=== PATIENT | male | born 1965 | race Caucasian/White ===

== ENCOUNTER 2017-10-18 11:48 | Emergency (ER) | payer SELFPAY, MEDICAID ==
[2017-10-18] MEDS: DIPHTH/TET/ACEL PERTUSS (ADULT) 0.5 ML VIAL IM* (12:31)
[2017-10-18] MEDS: LIDOCAINE 1% (MDV) 10 ML INJ INFIL (12:31)
== END 2017-10-18 13:32 | disposition home or self-care (01) ==
LOC: FTE 11:48
DX: S61.012A Laceration without foreign body of left thumb without damage to nail, initial encounter (principal); F17.210 Nicotine dependence, cigarettes, uncomplicated; W26.0XXA Contact with knife, initial encounter; Y92.9 Unspecified place or not applicable; Z23 Encounter for immunization
CPT/HCPCS: 12001; 90471; 90715; 99283-25

== ENCOUNTER 2019-02-18 01:02 | Emergency (ER) | payer SELFPAY ==
[2019-02-18] MEDS: predniSONE 20 MG TAB PO (01:37)
[2019-02-18] MEDS: DIPHENHYDRAMINE 25 MG CAP PO (01:37)
== END 2019-02-18 01:51 | disposition home or self-care (01) ==
LOC: FTE 01:02
DX: S50.861A Insect bite (nonvenomous) of right forearm, initial encounter (principal); S50.862A Insect bite (nonvenomous) of left forearm, initial encounter; W57.XXXA Bitten or stung by nonvenomous insect and other nonvenomous arthropods, initial encounter; Y92.9 Unspecified place or not applicable; Z87.891 Personal history of nicotine dependence
CPT/HCPCS: 99283